=== PATIENT | male | born 1945 | race Caucasian/White ===

== ENCOUNTER 2024-05-07 21:28 | Inpatient (IN) | payer OTHER, BC ==
[2024-05-07] MEDS ORDERED: ACETAMINOPHEN INJECTION 100 ML ONE (22:23)
[2024-05-07 23:50] LABS: BASO % 1.2 % (0-2.0); EOS % 4.6 % (0-4.5); HEMATOCRIT 29.5 % (35.4-49); HEMOGLOBIN 9.7 GM/dL (11.7-16.9); LYMPH % 17.9 % (8-40); MCH 31.4 pg (25.7-33.7); MCHC 32.9 g/dl (32.0-35.9); MEAN CELL VOLUME 95.4 fl (80-96); MEAN PLT VOLUME 8.5 fl (7.5-11.1); NEUT % 66.3 % (42.8-82.8); PLATELET COUNT 167 10^3/uL (134-434); RDW 16.3 % (11.9-15.9); WHITE BLOOD COUNT 6.7 K/mm3 (4.0-10.0)
[2024-05-07 23:57] LABS: INR 1.52 (0.83-1.09); PROTHROMBIN TIME (PATIENT) 16.7 SEC (9.7-13.0)
[2024-05-08 00:13] LABS: POTASSIUM 3.2 mmol/L (3.5-5.1)
[2024-05-08 00:15] LABS: ALBUMIN 3.4 g/dl (3.4-5.0); BLOOD UREA NITROGEN 41.4 mg/dL (7-18); CALCIUM 8.5 mg/dL (8.5-10.1)
[2024-05-08 00:19] LABS: CREATININE 3.2 mg/dL (0.55-1.3)
[2024-05-08 00:20] LABS: BILIRUBIN,TOTAL 0.6 mg/dL (0.2-1); TOT PROT 6.2 g/dl (6.4-8.2)
[2024-05-08] MEDS: ACETAMINOPHEN 1000 MG/100 ML BAG IVPB ONE (03:08)
[2024-05-08] MEDS: SODIUM CHLORIDE 1,000 ML IV STA (03:08)
[2024-05-08 05:01] LABS: URINE APPEARANCE CLEAR; URINE BILIRUBIN NEGATIVE (NEGATIVE); URINE COLOR YELLOW; URINE GLUCOSE (UA) NEGATIVE (NEGATIVE); URINE KETONE NEGATIVE (NEGATIVE); URINE LEUK ESTERASE NEGATIVE (NEGATIVE); URINE NITRITE NEGATIVE (NEGATIVE); URINE PROTEIN NEGATIVE (NEGATIVE); URINE UROBILINOGEN 0.2 mg/dL (0.2-1.0)
[2024-05-08] MEDS: POTASSIUM CHLORIDE ORAL LIQUID 20 MEQ/15 ML PO ONE (06:41)
[2024-05-08] MEDS ORDERED: PANTOPRAZOLE 40 MG TABLET PO ONE (07:59)
[2024-05-08] MEDS ORDERED: ACETAMINOPHEN 325 MG TABLET (FP) ONE (08:00)
[2024-05-08] MEDS: PANTOPRAZOLE 40 MG TABLET PO SCH (08:11)
[2024-05-08] MEDS: ACETAMINOPHEN 325 MG TABLET (FP) PO PRN (08:12)
[2024-05-08] MEDS: D5-1/2NS+10 MEQ KCL - 10 MEQ/1,000 ML INFUS.BAG IV SCH (08:27)
[2024-05-08] MEDS ORDERED: LORazepam 1 MG TABLET PO SCH (10:00)
[2024-05-08] MEDS: CHOLECALCIFEROL (VIT D3) 1,000 UNIT (25 MCG) TABLET PO SCH (11:02)
[2024-05-08] MEDS: EMPAGLIFLOZIN (JARDIANCE) 10 MG TABLET PO SCH (11:02)
[2024-05-08] MEDS: CYANOCOBALAMIN 1,000 MCG TABLET (FP) PO SCH (11:02)
[2024-05-08] MEDS: AMIODARONE HCL 200 MG TABLET PO SCH (11:02)
[2024-05-08] MEDS: ASCORBIC ACID 250 MG TABLET (FP) PO SCH (11:02)
[2024-05-08] MEDS: metoPROLOL SUCCINATE 25 MG TAB.SR.24H (FP) PO SCH (11:02)
[2024-05-08] MEDS: LOSARTAN POTASSIUM 50 MG TABLET PO SCH (11:04)
[2024-05-08] MEDS: GABAPENTIN 300 MG CAPSULE PO SCH (11:04)
[2024-05-08] MEDS: TAMSULOSIN HCL 0.4 MG CAP PO SCH (11:05)
[2024-05-08] MEDS: traMADol HCL 50 MG TABLET PO PRN (11:05)
[2024-05-08] MEDS: hydrALAZINE HCL 50 MG TABLET (FP) PO SCH ×2 (11:05→18:23)
[2024-05-08] MEDS: APIXABAN 2.5 MG TABLET PO SCH (11:08)
[2024-05-08] MEDS: LACTULOSE 20 GM/30 ML UDC (FOR ORAL USE ONLY) PO SCH (11:09)
[2024-05-08] MEDS: POLYETHYLENE GLYCOL (HEALTHYLAX) 3350 17 GM PACKET PO SCH (11:09)
[2024-05-08] MEDS: NYSTATIN 100000 UNIT/GM TOPICAL OINTMENT 15 GM TUBE TP SCH (12:42)
[2024-05-08] MEDS: HYDROCORTISONE 5 MG TABLET PO SCH ×2 (12:43→16:09)
[2024-05-08] MEDS: BUMETANIDE 1 MG TABLET PO SCH (12:43)
[2024-05-08] MEDS ORDERED: ACETAMINOPHEN 325 MG TABLET (FP) PO PRN (15:15)
[2024-05-08] MEDS: oxyCODONE HCL 5 MG TABLET PO PRN (16:28)
[2024-05-08] MEDS: ATORVASTATIN CA 20 MG TABLET (FP) PO SCH (21:17)
[2024-05-08] MEDS: MIRTAZAPINE 15 MG TABLET (FP) PO SCH (21:17)
[2024-05-08] MEDS: SENNOSIDES 8.6MG TABLET (FP) PO SCH (21:17)
[2024-05-08] MEDS ORDERED: MIRTAZAPINE 15 MG TABLET (FP) PO SCH (22:00)
[2024-05-08] MEDS: PIPERACILLIN/TAZOB 2.25 GM 2.25 GM/50 ML BAG IVPB SCH (22:35)
[2024-05-09] MEDS: EMPAGLIFLOZIN (JARDIANCE) 10 MG TABLET PO SCH (06:32)
[2024-05-09 08:14] LABS: BASO % 1.3 % (0-2.0); EOS % 5.1 % (0-4.5); HEMATOCRIT 27.8 % (35.4-49); HEMOGLOBIN 9.2 GM/dL (11.7-16.9); LYMPH % 16.9 % (8-40); MCH 32.2 pg (25.7-33.7); MCHC 33.1 g/dl (32.0-35.9); MEAN CELL VOLUME 97.2 fl (80-96); MEAN PLT VOLUME 8.3 fl (7.5-11.1); MONO % 8.9 % (3.8-10.2); NEUT % 67.8 % (42.8-82.8); PLATELET COUNT 159 10^3/uL (134-434); RBC 2.86 M/mm3 (4.00-5.60); RDW 16.5 % (11.9-15.9); WHITE BLOOD COUNT 7.1 K/mm3 (4.0-10.0)
[2024-05-09 08:26] LABS: POTASSIUM 3.9 mmol/L (3.5-5.1)
[2024-05-09 08:27] LABS: BLOOD UREA NITROGEN 37.8 mg/dL (7-18); CALCIUM 8.3 mg/dL (8.5-10.1)
[2024-05-09] MEDS: HYDROCORTISONE 5 MG TABLET PO SCH (11:33)
[2024-05-09] MEDS: hydrALAZINE HCL 50 MG TABLET (FP) PO SCH (11:37)
[2024-05-09] MEDS: IRON SUCROSE INJECTION 300 MG in SODIUM CHLORIDE 235 ML IVPB ONE (16:12)
[2024-05-09] MEDS ORDERED: oxyCODONE HCL 5 MG TABLET PO PRN (17:38)
[2024-05-09 17:53] VITALS: BMI 25.2
[2024-05-10] MEDS: BUMETANIDE 1 MG TABLET PO SCH ×2 (06:06→13:11)
[2024-05-10 07:43] LABS: BASO % 0.9 % (0-2.0); EOS % 3.4 % (0-4.5); HEMATOCRIT 27.1 % (35.4-49); LYMPH % 15.2 % (8-40); MCH 32.1 pg (25.7-33.7); MCHC 33.3 g/dl (32.0-35.9); MEAN CELL VOLUME 96.2 fl (80-96); MEAN PLT VOLUME 8.9 fl (7.5-11.1); MONO % 9.2 % (3.8-10.2); NEUT % 71.3 % (42.8-82.8); PLATELET COUNT 160 10^3/uL (134-434); RBC 2.82 M/mm3 (4.00-5.60); RDW 16.8 % (11.9-15.9); WHITE BLOOD COUNT 7.4 K/mm3 (4.0-10.0)
[2024-05-10 07:54] LABS: POTASSIUM 3.6 mmol/L (3.5-5.1)
[2024-05-10 08:08] LABS: CALCIUM 8.4 mg/dL (8.5-10.1)
[2024-05-10 08:09] LABS: BLOOD UREA NITROGEN 37.4 mg/dL (7-18)
[2024-05-10] MEDS: ONDANSETRON 4 MG/2 ML VIAL IVPB PRN (08:48)
[2024-05-10] MEDS: MAGNESIUM HYDROX 2400MG/30ML ORAL SUSPENSION 30 ML CUP PO ONE (09:57)
[2024-05-10] MEDS: AMOX TR/POT CLAV 500MG/125MG TABLETS (FP) PO SCH (09:57)
[2024-05-10] MEDS: METHYLNALTREXONE BROMIDE 8 MG/0.4 ML SYRINGE SQ SCH (09:57)
[2024-05-10] MEDS ORDERED: Methylnaltrexone Bromide 12 MG/0.6 ML KIT SQ SCH (10:00)
[2024-05-10] MEDS: POLYETHYLENE GLYCOL (HEALTHYLAX) 3350 17 GM PACKET PO SCH (13:11)
[2024-05-10] MEDS: DOCUSATE SODIUM 100 MG CAPSULE (FP) PO SCH (13:11)
[2024-05-10] MEDS: MINERAL OIL ENEMA 133 ML ENEMA RC ONE (16:27)
[2024-05-10] MEDS: BISACODYL 10 MG SUPP.RECT PR ONE (20:48)
[2024-05-11 07:07] VITALS: RESP 18
[2024-05-11 07:55] LABS: EOS % 3.6 % (0-4.5); HEMATOCRIT 28.1 % (35.4-49); HEMOGLOBIN 9.2 GM/dL (11.7-16.9); LYMPH % 14.8 % (8-40); MCH 31.8 pg (25.7-33.7); MEAN CELL VOLUME 96.4 fl (80-96); MEAN PLT VOLUME 8.7 fl (7.5-11.1); MONO % 10.5 % (3.8-10.2); NEUT % 70.1 % (42.8-82.8); PLATELET COUNT 163 10^3/uL (134-434); RBC 2.91 M/mm3 (4.00-5.60); RDW 16.2 % (11.9-15.9); WHITE BLOOD COUNT 8.2 K/mm3 (4.0-10.0)
[2024-05-11 08:16] LABS: POTASSIUM 3.7 mmol/L (3.5-5.1)
[2024-05-11 08:19] LABS: BLOOD UREA NITROGEN 37.3 mg/dL (7-18); CALCIUM 8.3 mg/dL (8.5-10.1)
[2024-05-11] MEDS: oxyCODONE HCL 5 MG TABLET PO PRN (09:22)
[2024-05-11] MEDS ORDERED: oxyCODONE HCL 5 MG TABLET PO PRN (12:17)
[2024-05-11] MEDS: BISACODYL 10 MG SUPP.RECT PR ONE (13:17)
[2024-05-11] MEDS: MAGNESIUM HYDROX 2400MG/30ML ORAL SUSPENSION 30 ML CUP PO ONE (13:18)
[2024-05-11] MEDS: MINERAL OIL 30 ML UNIT-DOSE CUP PO ONE (14:07)
[2024-05-11 14:39] VITALS: PULSE 58
[2024-05-11 16:39] VITALS: BP 135/74; TEMP 98.1
== END 2024-05-11 21:14 | DRG 194 ==
LOC: JER 21:28 → JERBED 05-08 05:36 → J7W 05-08 09:24
PROVIDERS: ADMIT Internal Medicine; ATTEND Internal Medicine
DX: J18.9 Pneumonia, unspecified organism (principal); E27.40 Unspecified adrenocortical insufficiency; I13.0 Hypertensive heart and chronic kidney disease with heart failure and stage 1 through stage 4 chronic kidney disease, or unspecified chronic kidney disease; N18.4 Chronic kidney disease, stage 4 (severe); S22.32XA Fracture of one rib, left side, initial encounter for closed fracture; R10.9 Unspecified abdominal pain; F41.8 Other specified anxiety disorders; I48.91 Unspecified atrial fibrillation; M51.369 Other intervertebral disc degeneration, lumbar region without mention of lumbar back pain or lower extremity pain; M16.0 Bilateral primary osteoarthritis of hip; M41.56 Other secondary scoliosis, lumbar region; K59.00 Constipation, unspecified; X58.XXXA Exposure to other specified factors, initial encounter; Y93.9 Activity, unspecified; Y92.89 Other specified places as the place of occurrence of the external cause; Y99.9 Unspecified external cause status
CPT/HCPCS: 36415; 71101-TC-LT-FY; 72100-TC-FY; 73502-TC-LT-FY; 74176-TC; 80048; 80053; 81003; 82728; 82962; 83540; 83550; 83605; 85025; 85610; 85730; 86850; 86900; 86901; 87086; 87635; 93005; 93010; 97116-GP; 97161-GP; 99285-25; J0131; J1756